=== PATIENT | male | born 1965 | race African-American/Black ===

== ENCOUNTER → 2016-09-26 | Outpatient (CLI) | payer MEDICARE, MEDICAID ==
--- NOTE | 2016-09-26 15:02 | RAD ---
Chest radiograph 2 views 09/26/2016 Clinical indication: Intermittent right upper chest pain. Hypertension. Comparison: Chest radiograph September 17, 2004. Findings: Cardiac and mediastinal silhouettes are within normal limits. No pleural effusion, pneumothorax or focal consolidation. Impression: No acute cardiopulmonary abnormality.
== END | disposition home or self-care (01) ==
LOC: RAD 09:53
PROVIDERS: ATTEND Internal Medicine
DX: I10 Essential (primary) hypertension (principal); R07.9 Chest pain, unspecified
CPT/HCPCS: 71020

== ENCOUNTER → 2017-05-21 | Outpatient (CLI) | payer MEDICARE, MEDICAID ==
[2017-05-21] MEDS: BARIUM SULFATE 60% 355 ML SUSP PO (07:58)
== END | disposition home or self-care (01) ==
LOC: RAD 07:28
DX: R10.12 Left upper quadrant pain (principal)
CPT/HCPCS: 74250

== ENCOUNTER → 2017-05-29 | Outpatient (CLI) | payer MEDICARE, MEDICAID ==
[~2017-05-29] MED LIST: CONTRAST GIVEN MC
[2017-05-29] MEDS: IOHEXOL 300 MG/ML 100ML VIAL. IV (12:41)
[2017-05-29] MEDS: IOHEXOL 240 MG/ML 50ML VIAL. PO (12:41)
== END | disposition home or self-care (01) ==
LOC: CT 11:02
DX: R10.10 Upper abdominal pain, unspecified (principal); R11.0 Nausea; I10 Essential (primary) hypertension; Z79.01 Long term (current) use of anticoagulants
CPT/HCPCS: 74177; Q9966; Q9967

== ENCOUNTER → 2017-07-01 | Outpatient (CLI) | payer MEDICARE, MEDICAID | END | disposition home or self-care (01) | LOC: NM 06:35 | DX: K30 Functional dyspepsia (principal) | CPT/HCPCS: 78264; A9541 ==

== ENCOUNTER → 2017-11-20 | Outpatient (CLI) | payer MEDICARE, MEDICAID ==
[~2017-11-20] MED LIST changes: -CONTRAST GIVEN MC; +GADOBUTROL 7.5 MMOL/7.5 ML VIAL IV ONE; +LEVO25TA4 PO; +LISI-334 PO
--- NOTE | 2017-11-20 16:39 | KCIC ---
MR of the proximal tibia with and without contrast HISTORY: Proximal tibial mass for a couple of weeks. Pain with prolonged standing. TECHNIQUE: Skin markers are placed at the area of concern, anterior to the tibial tubercle. Routine multiplanar sequences are obtained through this area before and after intravenous contrast. FINDINGS: Thin layer of fluid signal and enhancement anterior to the patellar tendon insertion and the tibial tubercle. Minimal marrow edema/enhancement within the underlying tibial tubercle. The patellar tendon insertion is intact without thickening or tear. No significant deep infrapatellar bursal fluid. There is subtle chronic appearing hypertrophy of the tibial tubercle without evidence of fragmentation or fracture. No evidence of a soft tissue mass. Mild subchondral marrow edema at the proximal tibiofibular joint consistent with degenerative etiology. Limited evaluation of the knee demonstrates findings compatible with a posterior horn medial meniscal tear. Mild chondromalacia of the visualized articular cartilage of the knee. IMPRESSION: 1. Mild edema at and superficial to the tibial tubercle and patellar insertion, likely inflammatory or reactive. Could be related to insertional patellar tendinosis, but the patellar tendon itself appears normal. 2. No evidence of soft tissue mass. 3. Incidentally seen medial meniscal tear. Electronically signed by: Chadd Lima MD (11/20/2017 4:35 PM) [facility]
== END | disposition home or self-care (01) ==
LOC: KCIC MRI 12:54
PROVIDERS: ATTEND Orthopaedic Surgery
DX: S83.242A Other tear of medial meniscus, current injury, left knee, initial encounter (principal); M94.262 Chondromalacia, left knee; R60.0 Localized edema; I10 Essential (primary) hypertension; X58.XXXA Exposure to other specified factors, initial encounter; Y93.89 Activity, other specified; Y92.89 Other specified places as the place of occurrence of the external cause; Y99.8 Other external cause status
CPT/HCPCS: 73723; A9585

== ENCOUNTER → 2018-06-09 | Outpatient (CLI) | payer MEDICARE, MEDICAID ==
[~2018-06-09] MED LIST changes: -GADOBUTROL 7.5 MMOL/7.5 ML VIAL IV ONE
--- NOTE | 2018-06-09 12:56 | KCIC ---
MRI Cervical Spine Without Contrast History: Cervical radiculitis, acute neck pain, stiffness in recent weeks, new left upper extremity numbness Technique: Multiplanar, multi sequential noncontrast MR imaging was performed of the cervical spine. Comparison: None Findings: There is some motion degradation. Cervical cord caliber is within normal limits without focal signal abnormality. Cervical vertebral body stature and AP alignment are maintained. Intervertebral disc spaces are overall maintained. There is no significant marrow edema. C2-C3: Spinal canal and neural foramina are adequate. C3-C4: There is minimal disc osteophyte complex more eccentric to the far lateral recess. Central canal is borderline about 10 mm, mild narrowing of the far left lateral recess. There is left uncovertebral degenerative change contributing to fairly severe narrowing of the left neural foramen, right neural foramen overall adequate. C4-C5: Spinal canal and neural foramina are overall adequate. C5-C6: Spinal canal and neural foramina are overall adequate. C6-C7: There is negligible disc osteophyte complex. Central canal is adequate about 11 mm. There is likely mild narrowing of the neural foramina greater on the left. There is facet degenerative change, minimal uncovertebral degenerative change. C7-T1: Spinal canal and neural foramina are adequate. There is left facet hypertrophic change. Impression: 1. There is no significant cervical spinal stenosis, mild left lateral recess stenosis at C3-4. Uncovertebral degenerative change contributes to fairly severe narrowing of the left C3-4 neural foramen. Electronically signed by: Willian Dennis MD (06/09/2018 12:53 PM) [id number]
== END | disposition home or self-care (01) ==
LOC: KCIC MRI 10:32
PROVIDERS: ATTEND Physical Medicine & Rehabilitation
DX: M47.22 Other spondylosis with radiculopathy, cervical region (principal); M48.02 Spinal stenosis, cervical region; M25.78 Osteophyte, vertebrae
CPT/HCPCS: 72141